=== PATIENT | female | born 1950 | race Caucasian/White ===

== ENCOUNTER → 2021-09-30 | Outpatient (CLI) | payer MEDICARE | LOC: WOUNDCARE 10:38 | PROVIDERS: ATTEND Family Medicine | DX: L89.153 Pressure ulcer of sacral region, stage 3 (principal); G82.21 Paraplegia, complete; N39.42 Incontinence without sensory awareness; Z93.3 Colostomy status; I96 Gangrene, not elsewhere classified | CPT/HCPCS: 11042; A6021; A6212; G0463 ==

== ENCOUNTER → 2021-10-07 | Outpatient (CLI) | payer MEDICARE | LOC: WOUNDCARE 10:24 | PROVIDERS: ATTEND Family Medicine | DX: L89.153 Pressure ulcer of sacral region, stage 3 (principal); G82.21 Paraplegia, complete; N39.42 Incontinence without sensory awareness; I95.2 Hypotension due to drugs; I96 Gangrene, not elsewhere classified; Z93.3 Colostomy status | CPT/HCPCS: 11042; A6021; A6212; G0463 ==

== ENCOUNTER → 2021-10-31 | Outpatient (CLI) | payer MEDICARE | LOC: WOUNDCARE 09:26 | PROVIDERS: ATTEND Family Medicine | DX: G82.21 Paraplegia, complete (principal); L98.492 Non-pressure chronic ulcer of skin of other sites with fat layer exposed; N39.42 Incontinence without sensory awareness; L03.314 Cellulitis of groin; I96 Gangrene, not elsewhere classified; Z93.3 Colostomy status | CPT/HCPCS: 11042; 87070; 87077; 87205; A6197; A6212; G0463 ==

== ENCOUNTER → 2021-11-07 | Outpatient (CLI) | payer MEDICARE | LOC: WOUNDCARE 10:55 | PROVIDERS: ATTEND Family Medicine | DX: G82.21 Paraplegia, complete (principal); L03.314 Cellulitis of groin; N39.42 Incontinence without sensory awareness; L98.492 Non-pressure chronic ulcer of skin of other sites with fat layer exposed; A49.02 Methicillin resistant Staphylococcus aureus infection, unspecified site; Z93.3 Colostomy status | CPT/HCPCS: 11042; A6212; G0463 ==

== ENCOUNTER → 2021-11-17 | Outpatient (CLI) | payer MEDICARE | LOC: LAB 11:19 | PROVIDERS: ATTEND Family Medicine | DX: G82.21 Paraplegia, complete (principal); N39.42 Incontinence without sensory awareness; L03.314 Cellulitis of groin; L98.492 Non-pressure chronic ulcer of skin of other sites with fat layer exposed; B95.2 Enterococcus as the cause of diseases classified elsewhere; L89.523 Pressure ulcer of left ankle, stage 3; D50.9 Iron deficiency anemia, unspecified; R19.7 Diarrhea, unspecified; Z93.3 Colostomy status | CPT/HCPCS: 36415; 82728; 84134; 85652; 86141 ==

== ENCOUNTER → 2021-11-17 | Outpatient (CLI) | payer MEDICARE | LOC: WOUNDCARE 10:29 | PROVIDERS: ATTEND Family Medicine | DX: G82.21 Paraplegia, complete (principal); L98.492 Non-pressure chronic ulcer of skin of other sites with fat layer exposed; N39.42 Incontinence without sensory awareness; L03.314 Cellulitis of groin; A49.02 Methicillin resistant Staphylococcus aureus infection, unspecified site; L89.523 Pressure ulcer of left ankle, stage 3; D50.9 Iron deficiency anemia, unspecified; I96 Gangrene, not elsewhere classified; R19.7 Diarrhea, unspecified; Z93.3 Colostomy status | CPT/HCPCS: 11042; A6212; A6260; G0463 ==

== ENCOUNTER → 2021-11-24 | Outpatient (CLI) | payer MEDICARE | LOC: WOUNDCARE 10:38 | PROVIDERS: ATTEND Family Medicine | DX: L98.492 Non-pressure chronic ulcer of skin of other sites with fat layer exposed (principal); G82.21 Paraplegia, complete; R32 Unspecified urinary incontinence; Z93.3 Colostomy status; D50.9 Iron deficiency anemia, unspecified; I96 Gangrene, not elsewhere classified | CPT/HCPCS: 11042; A6212; G0463 ==

== ENCOUNTER → 2021-12-01 | Outpatient (CLI) | payer MEDICARE | LOC: WOUNDCARE 10:21 | PROVIDERS: ATTEND Family Medicine | DX: G82.21 Paraplegia, complete (principal); L98.492 Non-pressure chronic ulcer of skin of other sites with fat layer exposed; N39.42 Incontinence without sensory awareness; D50.9 Iron deficiency anemia, unspecified; B37.2 Candidiasis of skin and nail; I96 Gangrene, not elsewhere classified; Z93.3 Colostomy status | CPT/HCPCS: 11042; 87070; 87205; A6212; G0463 ==

== ENCOUNTER → 2021-12-09 | Outpatient (CLI) | payer MEDICARE | LOC: WOUNDCARE 10:29 | PROVIDERS: ATTEND Family Medicine | DX: G82.21 Paraplegia, complete (principal); N39.42 Incontinence without sensory awareness; L98.492 Non-pressure chronic ulcer of skin of other sites with fat layer exposed; D50.9 Iron deficiency anemia, unspecified; I96 Gangrene, not elsewhere classified; Z93.3 Colostomy status | CPT/HCPCS: 11102; G0463 ==

== ENCOUNTER → 2021-12-09 | Outpatient (CLI) | payer MEDICARE ==
[2021-12-09 12:11] LABS: ALBUMIN 4.3 GM/DL (3.2-4.5); BILIRUBIN,TOTAL 0.5 MG/DL (0.1-1.0); CALCIUM 9.5 MG/DL (8.5-10.1); CREATININE SERUM 1.01 MG/DL (0.60-1.30); POTASSIUM 5.1 MMOL/L (3.6-5.0); TOTAL PROTEIN 7.1 GM/DL (6.4-8.2)
== END ==
LOC: LAB 11:34
PROVIDERS: ATTEND Family Medicine
DX: L98.492 Non-pressure chronic ulcer of skin of other sites with fat layer exposed (principal)
CPT/HCPCS: 36415; 80053

== ENCOUNTER → 2021-12-17 | Outpatient (CLI) | payer MEDICARE ==
[~2021-12-17] MED LIST: CATHETER FLUSH 10 ML SYR IV PRN; HOLD METFORMIN - RECEIVED CONTRAST 20 ML VIAL IV SCH; IOHEXOL 350 MG/ML 100 ML (OMNIPAQUE 350) VIAL IV ONE; NS 100 ML (IVPB) BAG IV ONE
--- NOTE | 2021-12-17 19:09 | Diagnostic Imaging Report ---
PROCEDURE: CT pelvis with contrast. TECHNIQUE: Oral and intravenous contrast were administered with pelvic CT performed. Auto Exposure Controls were utilized during the CT exam to meet ALARA standards for radiation dose reduction. INDICATION: Groin pain. I have no priors. FINDINGS: There is profound left greater than right iliopsoas fatty muscular atrophy and marked atrophy of the left greater than right gluteal and paraspinal musculature. The visualized lower poles of the kidneys are unobstructed. The aorta and iliac vessels atherosclerotic but nonaneurysmal. There is mildly elevated fecal load in the colon but no focal impaction or bowel obstruction. No bowel wall thickening. No perienteric or pericolonic edema. There is left lower quadrant ostomy diversion and ventral periumbilical hernia nonobstructing partially visualized. There is cutaneous irregularity about the adducted right hip along the crease of the groin where there are skin defects, subcutaneous edema and likely regional cellulitis with few bubbles of soft tissue gas just deep to the skin surface which may reflect an ulcer cavity. No drainable fluid collection. This is at the level of the pubic symphysis which showed no erosion. There is chronic soft tissue ossifications about the right hip musculature. No sacrococcygeal destruction. The pelvic intra and retroperitoneal spaces appeared nonacute. There is chronic appearing flattening and wedge deformity of the L5 vertebral body. There is grade 4 L4 on L5 anterolisthesis with the anterior endplate of L4 showing a pseudoarthrosis with the posterior endplate of L5; these are at virtually the same level. This is presumed chronic profound deformity. IMPRESSION: 1. Focal cellulitis and likely skin ulceration in the crease of the right groin where there is no drainable fluid collection or extension into the true pelvis. 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 Profound muscular atrophy of the core muscles asymmetric, greater left. Nonobstructing ventral periumbilical hernia. 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 2. 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 Dictated by: Dictated on workstation # [id number]
== END ==
LOC: RAD 11:15
PROVIDERS: ATTEND Family Medicine
DX: L98.492 Non-pressure chronic ulcer of skin of other sites with fat layer exposed (principal); K43.5 Parastomal hernia without obstruction or gangrene
CPT/HCPCS: 72193

== ENCOUNTER → 2021-12-22 | Outpatient (CLI) | payer MEDICARE | LOC: WOUNDCARE 10:26 | PROVIDERS: ATTEND Family Medicine | DX: G82.21 Paraplegia, complete (principal); L98.492 Non-pressure chronic ulcer of skin of other sites with fat layer exposed; D50.9 Iron deficiency anemia, unspecified; E11.52 Type 2 diabetes mellitus with diabetic peripheral angiopathy with gangrene; I96 Gangrene, not elsewhere classified; R19.7 Diarrhea, unspecified; N39.42 Incontinence without sensory awareness; Z93.3 Colostomy status | CPT/HCPCS: 11042; 87070; 87205; G0463; 87077 ==

== ENCOUNTER → 2021-12-30 | Outpatient (CLI) | payer MEDICARE | LOC: WOUNDCARE 10:27 | PROVIDERS: ATTEND Family Medicine | DX: G82.21 Paraplegia, complete (principal); L98.492 Non-pressure chronic ulcer of skin of other sites with fat layer exposed; N39.42 Incontinence without sensory awareness; D50.9 Iron deficiency anemia, unspecified; B95.2 Enterococcus as the cause of diseases classified elsewhere; E11.52 Type 2 diabetes mellitus with diabetic peripheral angiopathy with gangrene; I96 Gangrene, not elsewhere classified; R19.7 Diarrhea, unspecified; Z93.3 Colostomy status | CPT/HCPCS: 11042; 87324; 87449; G0463 ==

== ENCOUNTER → 2022-01-06 | Outpatient (CLI) | payer MEDICARE | LOC: WOUNDCARE 10:34 | PROVIDERS: ATTEND Family Medicine | DX: G82.21 Paraplegia, complete (principal); L98.492 Non-pressure chronic ulcer of skin of other sites with fat layer exposed; I96 Gangrene, not elsewhere classified; N39.42 Incontinence without sensory awareness; D50.9 Iron deficiency anemia, unspecified; B95.2 Enterococcus as the cause of diseases classified elsewhere; B37.2 Candidiasis of skin and nail; R19.7 Diarrhea, unspecified; Z93.3 Colostomy status | CPT/HCPCS: 11042; G0463 ==

== ENCOUNTER → 2022-01-13 | Outpatient (CLI) | payer MEDICARE | LOC: WOUNDCARE 10:23 | PROVIDERS: ATTEND Family Medicine | DX: G82.21 Paraplegia, complete (principal); N39.42 Incontinence without sensory awareness; L98.492 Non-pressure chronic ulcer of skin of other sites with fat layer exposed; D50.9 Iron deficiency anemia, unspecified; R19.7 Diarrhea, unspecified; B95.2 Enterococcus as the cause of diseases classified elsewhere; A49.8 Other bacterial infections of unspecified site; B37.2 Candidiasis of skin and nail; I96 Gangrene, not elsewhere classified; Z93.3 Colostomy status | CPT/HCPCS: 11042; A6212; G0463 ==

== ENCOUNTER → 2022-01-21 | Outpatient (CLI) | payer MEDICARE | LOC: WOUNDCARE 11:04 | PROVIDERS: ATTEND Family Medicine | DX: G82.21 Paraplegia, complete (principal); N39.42 Incontinence without sensory awareness; L98.492 Non-pressure chronic ulcer of skin of other sites with fat layer exposed; D50.9 Iron deficiency anemia, unspecified; I96 Gangrene, not elsewhere classified; R19.7 Diarrhea, unspecified; Z93.3 Colostomy status | CPT/HCPCS: 11042; A6212; G0463 ==

== ENCOUNTER → 2022-01-29 | Outpatient (CLI) | payer MEDICARE | LOC: WOUNDCARE 10:39 | PROVIDERS: ATTEND Family Medicine | DX: L98.492 Non-pressure chronic ulcer of skin of other sites with fat layer exposed (principal); N39.42 Incontinence without sensory awareness; D50.9 Iron deficiency anemia, unspecified; G82.21 Paraplegia, complete; I96 Gangrene, not elsewhere classified | CPT/HCPCS: 11042; A6212; G0463 ==

== ENCOUNTER → 2022-02-10 | Outpatient (CLI) | payer MEDICARE | LOC: WOUNDCARE 11:29 | PROVIDERS: ATTEND Family Medicine | DX: G82.21 Paraplegia, complete (principal); N39.42 Incontinence without sensory awareness; L98.492 Non-pressure chronic ulcer of skin of other sites with fat layer exposed; D50.9 Iron deficiency anemia, unspecified; Z93.3 Colostomy status | CPT/HCPCS: 11042; A6212; G0463 ==

== ENCOUNTER → 2022-02-17 | Outpatient (CLI) | payer MEDICARE | LOC: WOUNDCARE 10:21 | PROVIDERS: ATTEND Family Medicine | DX: G82.21 Paraplegia, complete (principal); N39.42 Incontinence without sensory awareness; L98.492 Non-pressure chronic ulcer of skin of other sites with fat layer exposed; D50.9 Iron deficiency anemia, unspecified; L92.8 Other granulomatous disorders of the skin and subcutaneous tissue; I96 Gangrene, not elsewhere classified; Z93.3 Colostomy status | CPT/HCPCS: 11042; A6212; G0463 ==

== ENCOUNTER → 2022-02-25 | Outpatient (CLI) | payer MEDICARE | LOC: WOUNDCARE 09:30 | PROVIDERS: ATTEND Family Medicine | DX: L98.492 Non-pressure chronic ulcer of skin of other sites with fat layer exposed (principal); G82.21 Paraplegia, complete; N39.42 Incontinence without sensory awareness; Z93.3 Colostomy status; L92.9 Granulomatous disorder of the skin and subcutaneous tissue, unspecified; D50.9 Iron deficiency anemia, unspecified | CPT/HCPCS: 11042; A6212; G0463 ==

== ENCOUNTER → 2022-03-17 | Outpatient (CLI) | payer MEDICARE | LOC: WOUNDCARE 10:31 | PROVIDERS: ATTEND Family Medicine | DX: G82.21 Paraplegia, complete (principal); N39.42 Incontinence without sensory awareness; D50.9 Iron deficiency anemia, unspecified; Z93.3 Colostomy status | CPT/HCPCS: 99212 ==